=== PATIENT | male | born 1950 | race African-American/Black ===

== ENCOUNTER 2016-08-13 16:30 | Emergency (ER) | payer MEDICARE ==
[~2016-08-13] VITALS: Ht 182.9 cm; Wt 71.0 kg
[2016-08-13] MEDS ORDERED: MORPHINE SULFATE 4 MG/ML, 1ML ONE ×3 (16:57→19:49)
[2016-08-13] MEDS: MORPHINE SULFATE 4 MG/ML, 1ML IVPush PRN ×2 (16:58→17:52)
[2016-08-13] MEDS ORDERED: SODIUM CHLORIDE FLUSH 10ML SYR IVF ONE (17:00)
[2016-08-13] MEDS ORDERED: BACITRACIN ZINC OINT 500U/GM, 0.9 GM ONE (17:51)
[2016-08-13] MEDS ORDERED: MORPHINE SULFATE 4 MG/ML, 1ML IVPush ONE (20:00)
[2016-08-13 20:51] VITALS: BP 118/72
== END 2016-08-13 20:54 | disposition home or self-care (01) ==
LOC: ED 20:45
DX: S60.512A Abrasion of left hand, initial encounter (principal); M25.551 Pain in right hip; I10 Essential (primary) hypertension; E11.9 Type 2 diabetes mellitus without complications; W01.0XXA Fall on same level from slipping, tripping and stumbling without subsequent striking against object, initial encounter; Y93.89 Activity, other specified; Y92.410 Unspecified street and highway as the place of occurrence of the external cause; Y99.9 Unspecified external cause status
CPT/HCPCS: 96374; 96376